=== PATIENT | male | born 1965 | race Caucasian/White ===

== ENCOUNTER 2022-01-03 10:15 | Outpatient (RCR) | payer OTHER, SELFPAY | END 2022-10-04 23:59 | disposition home or self-care (01) | PROVIDERS: Visit Provider Physician Assistant | DX: S62.600D Fracture of unspecified phalanx of right index finger, subsequent encounter for fracture with routine healing (principal); Z51.89 Encounter for other specified aftercare | CPT/HCPCS: 97110; 97140; 97165; X5282 ==